=== PATIENT | male | born 1945 | race Caucasian/White ===

== ENCOUNTER → 2017-05-26 | Outpatient (CLI) | payer OTHER, MEDICARE ==
[~2017-05-26] MED LIST: ADULT LOW DOSE81 MG; ALTACE5 M1; ASA5UEC OR; ASPIRIN325 OR; LIPITOR20 MG; LOPRESSOR; MECLIZINE HCL25 M1 PO; NIASPAN 500 MG500 M1; PLAVIX 75 MG TA75 MG PO; SIMVASTATIN40 MG PO; TOPROL XL25 MG OR; ZPAK PO
== END ==
LOC: RAD 09:44
DX: R05 Cough (principal)

== ENCOUNTER 2018-07-07 06:03 | Inpatient (IN) | payer OTHER ==
[~2018-07-07] VITALS: Ht 180.3 cm; Wt 79.6 kg
[2018-07-07 06:15] VITALS: BP 117/53
[2018-07-07 06:51] LABS: HEMATOCRIT 32.5 % (42.0-52.0); HEMOGLOBIN 10.8 gm/dL (14.0-18.0); MCH 29.3 pg (26.0-34.0); MCHC 33.2 g/dL (28.0-37.0); MCV 88.2 fL (80.0-100.0); PLATELET COUNT 265 thou/uL (150-400); RBC 3.68 mil/uL (4.50-6.00); RDW 14.5 % (10.5-14.5); WBC 13.2 thou/uL (4.0-11.0)
[2018-07-07 07:05] LABS: ANION GAP 13 mmol/L (7-16); BUN 27 mg/dL (7-18); CALCIUM 8.9 mg/dL (8.5-10.1); CHLORIDE 107 mmol/L (98-107); CO2 21 mmol/L (21-32); CREATININE 1.3 mg/dL (0.7-1.3); GLUCOSE 126 mg/dL (74-106); POTASSIUM 3.6 mmol/L (3.5-5.1); SODIUM 141 mmol/L (136-145)
[2018-07-07 07:14] LABS: TROPONIN-I <0.06 ng/mL (<0.06)
[2018-07-07 08:27] LABS: ANISOCYTOSIS SLIGHT
--- NOTE | 2018-07-07 08:41 | EKG ---
[address] [address] [place] [address] ELECTROCARDIOGRAM REPORT Name: DAT STAHL [id number] ������������������ Admission: 07/07/18 ������������������ Attend Phys: Discharge: ������������������ Date of : 45 Report #: [id number] ����������������������������������������������������������������� [id number] THIS REPORT FOR: //name// [facility] ED Test Date: 2018-07-07 Test Time: 06:35:58 Pat Name: DAT STAHL Department: Room: Gender: Billing Checker: VINAY : 1945 Requested By: Ziggy Morrison Order Number: [id number] MD: Severo Silvestre Measurements Intervals [place] Rate: 84 P: 56 AL: 147 QRS: 72 QRSD: 101 T: 47 QT: 356 QTc: 421 Interpretive Statements Sinus rhythm Normal tracing Compared to ECG 11/09/2010 07:49:07 Atrial premature complex(es) no longer present Electronically Signed On 07-07-2018 8:41:10 BLOCK OPERATOR by Severo Silvestre [email or web address] ��������������������������������������������� <ELECTRONICALLY SIGNED> ���������������������������������������� By: Severo Silvestre MD, [facility] ��������������������������������������������� 07/07/18 0841 [id number] Severo Silvestre MD, FACC /EPI
[2018-07-07 09:07] VITALS: BP 118/55
[2018-07-07 10:04] VITALS: BP 116/52
--- NOTE | 2018-07-07 10:39 | NUR ---
PT ARRIVED TO UNIT FROM ED IN STABLE CONDITION AT 10:00. AND DAUGHTER AT BEDSIDE. ADMISSION ASSESSMENT AND HISTORY COMPLETED. A&O,X4. C/O NON CARDIAC CHEST PAIN RELATED TO COMMUNITY ACCQUIRED PNEUMONIA. REPORTS COUGH, STERNUM PAIN, AND SOA OVER THE PAST WEEK. ROOM AIR. DIM LUNG SOUNDS BILATERALLY. REGULAR HEART SOUNDS. HX ONE CARDIAC STENT. ACTIVE BOWEL SOUNDS, LBM YESTERDAY. SKIN INTACT. PT HAS GLASSES, FULL DENTURES, AND CLOTHES. FALL PRECAUTIONS IN PLACE. WILL CONTINUE TO MONITOR.
[2018-07-07 11:00] VITALS: BP 132/67
[2018-07-07 17:07] VITALS: BP 142/69
--- NOTE | 2018-07-07 18:09 | NUR ---
NO CHANGE IN PT STATUS. DENIES PAIN AT THIS TIME, STATES ONLY WHEN HE COUGHS. INTERMITTENT COUGH NOTED. VSS.
[2018-07-07 19:45] VITALS: BP 133/67
--- NOTE | 2018-07-08 03:57 | NUR ---
ASSUMED CARE AT 1900, ASSESSMENT COMPLETED. PT DENIES NAUSEA. REPORTS MODERATE PAIN ACROSS MID CHEST WHEN COUGHING. DRY, NONPRODUCTIVE COUGH NOTED. FAINT, FINE CRACKLES HEARD IN LUNG BASES. REPORTS SOB WITH ACTIVITY. RT TREATMENTS Q4WA, IV FLUIDS INFUSING, CALLS NEEDED. NO FURTHER CONCERNS, WILL CONTINUE TO MONITOR.
[2018-07-08 05:00] VITALS: BP 122/64
[2018-07-08 05:06] LABS: HEMATOCRIT 29.7 % (42.0-52.0); HEMOGLOBIN 10.2 gm/dL (14.0-18.0); MCH 30.2 pg (26.0-34.0); MCHC 34.3 g/dL (28.0-37.0); MCV 87.9 fL (80.0-100.0); RBC 3.38 mil/uL (4.50-6.00); RDW 13.8 % (10.5-14.5); WBC 10.4 thou/uL (4.0-11.0)
[2018-07-08 05:17] LABS: CALCIUM 7.9 mg/dL (8.5-10.1); CREATININE 1.1 mg/dL (0.7-1.3); POTASSIUM 3.8 mmol/L (3.5-5.1)
[2018-07-08 07:47] VITALS: BP 134/69
--- NOTE | 2018-07-08 12:22 | NUR ---
PT ADMITTED RELATED TO COMMUNITY ACCQUIRED PNEUMONIA. CM REVIEWED CHART AND SPOKE WITH CARE TEAM. CM MET WITH PT AND HIS SPOUSE AT BEDSIDE THIS DAY. PT IS A&0X4. CM ROLE INTRODUCED. PT INDICATED THEY LIVE IN A HOUSE WITH 8 STEPS TO ENTER AND 8 STEPS TO MAIN LIVING LEVEL. PT INDICATED HE HAD BEEN INDEPENDENT WITH GAIT AND ADLS SPINNING MULE TENDER. PT INDICATED NO DME OR HH HX. PT INDICATED HE PLANS TO RETURN HOME ONCE MEDICALLY STABLE. CM NOTIFIED THAT PT IS TO BE TRANSFERED TO SENIOR SUITES THIS AFTERNOON WITH POSSIBLE DISCHARGE HOME TOMORROW. CM TO FOLLOW INDICATED WITH DC PLANNING.
[2018-07-08 16:09] VITALS: BP 125/48
[2018-07-08 16:15] VITALS: BP 121/74
--- NOTE | 2018-07-08 17:15 | NUR ---
PATIENT ARRIVED AFTER REPORT FROM JEAN CARLOS RN. PATIENT ABLE TO TRANSFER SELF FROM W/C TO BED. GAIT IS STEADY. PATIENT ACCOMPANIED BY . PATIENT ASKING ABOUT IV FLUIDS AND HOW MUCH MORE DOES HE NEED, STATED THIS IS 4TH BAG. STATED HE DOESN'T DRINK VERY MUCH WATER AT HOME.
--- NOTE | 2018-07-09 04:13 | NUR ---
ASSUMED CARE OF PATIENT AT 1900. VSS. ASSESSMENT COMPLETED AT 2009 AND IS DOCUMENTED. PT HAS A NON-PRODUCTIVE COUGH, EXCEPT IMMEDIATELY AFTER RESPIRATORY TX. RIGHT WRIST IV INFILTRATED AT APPROXIMATELY 0200. IV D/C AND NEW IV STARTED IN RIGHT HAND. PATIENT TOLERATED WELL. RIGHT HAND IV PATENT WITH NS RUNNING AT 125 ML/HR. PT'S STAYED OVERNIGHT WITH PATIENT IN ROOM. PT UP AD [place] TO BATHROOM SEVERAL TIMES THROUGHOUT THE NIGHT. PT DENIES CHEST PAIN OR SOA THIS SHIFT. PT CURRENTLY SLEEPING SOUNDLY IN BED IN NO ACUTE DISTRESS. CALL LIGHT WITHIN REACH. BED LOCKED AND IN LOWEST POSITION. WCTM.
--- NOTE | 2018-07-09 04:23 | NUR ---
THIS NURSE AGREES WITH ASSESSMENT AND NOTES FROM HOUSEHOLD PERSONAL ASSISTANT ON THIS PATIENT.
[2018-07-09] MEDS ORDERED: FLOMAX0.4 MG PO (07:27)
[2018-07-09] MEDS ORDERED: LEVAQUIN 500 M500 M2 PO (07:28)
[2018-07-09 08:00] VITALS: BP 128/70
--- NOTE | 2018-07-09 08:28 | NUR ---
PT IS A&0X4, SLIGHTLY [place], SPOUSE AT BEDSIDE, IN GOOD SPIRITS, EDUCATION GIVEN ON D/C TIME/DEPENDENT UPON URINATION. DR COLVIN STATES IF NO URINE IN 8H BVI AND STRAIGHT CATH. NO C/O PAIN, NEED FOR URGENCY, OR NAUSEA. STATES NO OTHER TIME HAS HE HAD ISSUES W/URINE RETENTION. ENCOURAGED ALL TO USE CALL LIGHT FOR ANY NEEDS
[2018-07-09 13:32] VITALS: BP 121/74
== END 2018-07-09 14:30 | disposition home or self-care (01) | DRG 871 ==
LOC: ER 06:03 → EROBS 08:55 → 4E 08:55 → SICU 07-08 17:44
PROVIDERS: Emergency Medicine; ADMIT Family Medicine
DX: A41.9 Sepsis, unspecified organism (principal); J18.9 Pneumonia, unspecified organism; R09.02 Hypoxemia; I10 Essential (primary) hypertension; E78.5 Hyperlipidemia, unspecified; R91.8 Other nonspecific abnormal finding of lung field; R33.9 Retention of urine, unspecified; Z95.5 Presence of coronary angioplasty implant and graft; Z88.8 Allergy status to other drugs, medicaments and biological substances; Z87.891 Personal history of nicotine dependence; Z79.899 Other long term (current) drug therapy
CPT/HCPCS: 10084; 15002

== ENCOUNTER → 2018-09-23 | Outpatient (CLI) | payer OTHER ==
[~2018-09-23] MED LIST changes: +FLOMAX0.4 MG PO; +LEVAQUIN 500 M500 M2 PO
[2018-09-23 09:19] LABS: CREATININE 1.3 mg/dL (0.7-1.3)
== END ==
LOC: CAT 07:55
PROVIDERS: Family Medicine
DX: J84.10 Pulmonary fibrosis, unspecified (principal); N28.89 Other specified disorders of kidney and ureter; I25.10 Atherosclerotic heart disease of native coronary artery without angina pectoris; M47.814 Spondylosis without myelopathy or radiculopathy, thoracic region; Z88.1 Allergy status to other antibiotic agents; Z88.2 Allergy status to sulfonamides

== ENCOUNTER → 2019-03-06 | Outpatient (CLI) | payer OTHER | LOC: RAD 12:05 | DX: R06.00 Dyspnea, unspecified (principal) ==

== ENCOUNTER → 2019-10-23 | Outpatient (CLI) | payer OTHER, MEDICARE | LOC: SJCVCIMAG 10-16 11:41 | PROVIDERS: ATTEND Internal Medicine Cardiovascular Disease | DX: I07.1 Rheumatic tricuspid insufficiency (principal); I25.10 Atherosclerotic heart disease of native coronary artery without angina pectoris ==

== ENCOUNTER → 2019-10-25 | Outpatient (CLI) | payer OTHER, MEDICARE | LOC: SJCVCIMAG 10:24 → SJCVC 14:11 → SJCVCIMAG 15:14 | PROVIDERS: ATTEND Internal Medicine Cardiovascular Disease | DX: R00.0 Tachycardia, unspecified (principal); I25.10 Atherosclerotic heart disease of native coronary artery without angina pectoris; R51 Headache; R42 Dizziness and giddiness; E78.5 Hyperlipidemia, unspecified; I10 Essential (primary) hypertension; Z95.5 Presence of coronary angioplasty implant and graft; Z87.891 Personal history of nicotine dependence; Z79.899 Other long term (current) drug therapy ==

== ENCOUNTER → 2020-06-25 | Outpatient (CLI) | payer OTHER | LOC: SJCVC 14:13 | PROVIDERS: ATTEND Internal Medicine Cardiovascular Disease | DX: I25.10 Atherosclerotic heart disease of native coronary artery without angina pectoris (principal); I10 Essential (primary) hypertension; E78.00 Pure hypercholesterolemia, unspecified; I65.23 Occlusion and stenosis of bilateral carotid arteries; M19.90 Unspecified osteoarthritis, unspecified site; E78.5 Hyperlipidemia, unspecified; Z95.5 Presence of coronary angioplasty implant and graft; Z87.891 Personal history of nicotine dependence; Z79.899 Other long term (current) drug therapy; Z88.5 Allergy status to narcotic agent; Z88.2 Allergy status to sulfonamides; Z88.1 Allergy status to other antibiotic agents ==